=== PATIENT | female | born 1990 | race Caucasian/White ===

== ENCOUNTER 2016-09-03 18:59 | Emergency (ER) | payer OTHER ==
[~2016-09-03] VITALS: Ht 162.6 cm; Wt 65.9 kg
[~2016-09-03 18:59] MED LIST: EFFEXOR XR75 MG PO; MOTION-TIME25 MG PO; NEXIUM40 MG PO; TIZANIDINE HCL4 M1 PO; TRAZODONE HCL50 MG PO; YAZ1 TABLET PO; ZOLOFT100 M1 GT
[2016-09-03] MEDS ORDERED: SKELAXIN800 MG PO (21:23)
[2016-09-03] MEDS ORDERED: NAPROSYN500 MG PO (21:23)
[2016-09-03 21:38] VITALS: BP 139/91
== END 2016-09-03 21:38 | disposition home or self-care (01) ==
LOC: EME 18:59
DX: S13.4XXA Sprain of ligaments of cervical spine, initial encounter (principal); M25.511 Pain in right shoulder; V49.40XA Driver injured in collision with unspecified motor vehicles in traffic accident, initial encounter; Y92.410 Unspecified street and highway as the place of occurrence of the external cause; Z91.040 Latex allergy status
CPT/HCPCS: 70450; 72125; 99281; 99284